=== PATIENT | male | born 1970 | race Caucasian/White ===

== ENCOUNTER 2018-10-01 09:50 | Emergency (ER) | payer MEDICAID ==
[~2018-10-01] VITALS: Ht 167.6 cm; Wt 68.0 kg
[~2018-10-01 09:50] MED LIST: FLUC200T PO; INSU100C SQ-INSULIN; INSU100V8 SQ; METO25TA35 PO
[2018-10-01 09:58] VITALS: BP 143/95
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
--- NOTE | 2018-10-01 10:20 | NUR ---
RECEIVED REPORT FROM RONNY SUN. PT SLEEPING ON GURNEY, NAD WITH EQUAL CHEST RISE/FALL, NAD, NO NEEDS AT THIS TIME, PT IN SAFE ENVIRONMENT, SITTER IN VIEW.
[2018-10-01 10:36] LABS: ALBUMIN 4.1 g/dL (3.4-5.0); ANION GAP 15 mmol/L (5-15); CALCIUM 9.1 mg/dL (8.5-10.1); CHLORIDE 99 mmol/L (98-107); CREATININE 1.49 mg/dL (0.7-1.3)
--- NOTE | 2018-10-01 11:00 | NUR ---
PT CONTINUES SLEEPING ON GURNEY, NAD WITH EQUAL CHEST RISE/FALL, NAD, NO NEEDS AT THIS TIME, PT IN SAFE ENVIRONMENT, SITTER IN VIEW.
[2018-10-01 11:11] LABS: ACETONE, SERUM Negative (Negative)
--- NOTE | 2018-10-01 11:19 | NUR ---
PT AWOKE & ATTEMTPTED TO AMBULATE OUT OF ROOM, VERY UNSTEADY, ASSISTED PT BACK TO [facility] & GIVEN BSU BUT PT WENT BACK TO SLEEP UPON LAYING DOWN & REFUSED BSU AT THIS TIME, BSU REAMINS WITHIN REACH.
--- NOTE | 2018-10-01 12:13 | NUR ---
PT CONTINUES SLEEPING ON GURNEY, OCCAS AWAKES & YELLS REQUIRING MOD AMT REDIRECTION, NAD WITH EQUAL CHEST RISE/FALL, NAD, NO NEEDS AT THIS TIME, PT IN SAFE ENVIRONMENT, SITTER IN VIEW.
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
--- NOTE | 2018-10-01 13:01 | NUR ---
PT LAYING ON GURNEY WITH EYES CLOSED, IGNORING STAFF & FREQUENTLY YELLING DESPITE REDIRECTION, NAD WITH EQUAL CHEST RISE/FALL, NAD, NO NEEDS AT THIS TIME, PT IN SAFE ENVIRONMENT, SITTER IN VIEW, RESTRAINTS & ASPIR PREC REMAIN IN PLACE.
--- NOTE | 2018-10-01 13:45 | NUR ---
PT AWAKE & STATES HE'S READY TO GO, RESTRAINTS REMOVED, LUNCH TRAY GIVEN, PT ATE 50%, AMBULATED STEADILY IN [place], PA AWARE. DC INSTRUCTIONS GIVEN, PT VERBALIZED UNDERSTAING BUT REFUSED TO SIGN.
== END 2018-10-01 13:58 | disposition home or self-care (01) ==
LOC: EDBD → MERGE 09:50 → ED 13:52
DX: F10.120 Alcohol abuse with intoxication, uncomplicated (principal); E11.9 Type 2 diabetes mellitus without complications; I10 Essential (primary) hypertension
CPT/HCPCS: 36415; 80048; 80307; 82010; 82040; 82800; 99283

== ENCOUNTER 2018-10-01 15:38 | Emergency (ER) | payer MEDICAID ==
[~2018-10-01] VITALS: Ht 175.3 cm; Wt 63.0 kg
--- NOTE | 2018-10-01 15:43 | NUR ---
CALLED PATIENT, NO ANSWER, PER SECURITY IN BR
[2018-10-01 15:45] VITALS: BP 164/82
[2018-10-01] MEDS ORDERED: FAMOTIDINE 20 MG TABLET PO ONE (16:00)
[2018-10-01] MEDS ORDERED: ONDANSETRON ODT 4 MG PO ONE (16:00)
[2018-10-01] MEDS ORDERED: MAALOX/HYOSCYAMINE/LIDOCAINE 45 ML BTL PO ONE (16:00)
[2018-10-01] MEDS ORDERED: MAALOX/HYOSCYAMINE/LIDOCAINE 45 ML BTL ONE (16:25)
[2018-10-01] MEDS ORDERED: FAMOTIDINE 20 MG TABLET ONE (16:25)
[2018-10-01] MEDS ORDERED: ONDANSETRON ODT 4 MG ONE (16:25)
--- NOTE | 2018-10-01 16:27 | NUR ---
WENT TO MED PT IN ROOM HE WAS NOT THERE
== END 2018-10-01 16:42 | disposition left against medical advice (07) ==
LOC: ED 16:36
DX: R10.9 Unspecified abdominal pain (principal); I10 Essential (primary) hypertension; E11.9 Type 2 diabetes mellitus without complications; F17.200 Nicotine dependence, unspecified, uncomplicated
CPT/HCPCS: 76700; 99284

== ENCOUNTER 2018-10-02 00:05 | Inpatient (IN) | payer MEDICAID ==
[~2018-10-02] VITALS: Ht 175.3 cm; Wt 68.4 kg
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
--- NOTE | 2018-10-02 00:25 | NUR ---
pt yelling, pt assessed and stated " can i have some vodka, can i have some dilaudid?", informed pt of poc
[2018-10-02] MEDS ORDERED: METOCLOPRAMIDE 5 MG/ML, 2ML ONE (00:28)
[2018-10-02] MEDS ORDERED: SODIUM CHLORIDE 0.9% 1,000ML IVBOLUS ONE ×2 (00:30→01:30)
[2018-10-02] MEDS ORDERED: METOCLOPRAMIDE 5 MG/ML, 2ML IVPush ONE (00:30)
[2018-10-02 01:17] LABS: ALANINE AMINOTRANSFERASE 26 U/L (12-78); ALBUMIN 4.2 g/dL (3.4-5.0); ANION GAP 21 mmol/L (5-15); CALCIUM 8.7 mg/dL (8.5-10.1); CHLORIDE 99 mmol/L (98-107); CREATININE 1.35 mg/dL (0.7-1.3)
[2018-10-02 01:19] LABS: ALKALINE PHOSPHATASE 172 U/L (45-117); BILIRUBIN,TOTAL 1.2 mg/dL (0.2-1.0); TOTAL PROTEIN 8.7 g/dL (6.4-8.2)
--- NOTE | 2018-10-02 01:21 | NUR ---
PT REFUSING LAB DRAW, ERP UPDATED AND WILL SEE PT
[2018-10-02] MEDS ORDERED: INSULIN REGULAR 100 UNITS/ML, 3ML VIAL IVPush ONE (01:30)
[2018-10-02] MEDS ORDERED: INSULIN LISPRO 100 UNITS/ML, PEN ONE (01:34)
--- NOTE | 2018-10-02 01:52 | NUR ---
pt sitting up in bed, pt removed all monitoring wires, replaced monitors and pt verbalized understanding and agreement of need for monitoring. iv fluids infusing, call light within reach
--- NOTE | 2018-10-02 02:00 | NUR ---
Break RN:Pt amb w/ steady gait to RR for bm.
--- NOTE | 2018-10-02 02:02 | NUR ---
Break RN: Pt continues to rip monitoring off and refusing to wear.
[2018-10-02 02:15] LABS: ACETONE, SERUM Negative (Negative)
--- NOTE | 2018-10-02 02:42 | NUR ---
pt resting on gurney, iv fluid sinfusing, pt refuses to wear monitors, call light within reach
[2018-10-02] MEDS ORDERED: LORazepam 2 MG/ML, 1ML ONE ×8 (03:39→06:19)
[2018-10-02] MEDS ORDERED: LORazepam 2 MG/ML, 1ML IVPush ONE ×5 (04:00→07:30)
[2018-10-02] MEDS ORDERED: MAGNESIUM SULFATE 1 GM, THIAMINE 100 MG, FOLIC ACID 1 MG, MVI ADULT 10 ML in SODIUM CHL... IV ONE (04:00)
[2018-10-02] MEDS ORDERED: LORazepam 2 MG/ML, 1ML IM ONE ×6 (04:30→06:00)
--- NOTE | 2018-10-02 04:36 | NUR ---
Multiple rn's have attempted iv's, including US iv's. No success.
[2018-10-02 04:47] LABS: MEAN CORPUSCULAR HEMOGLOBIN 24.9 pg (27.5-34.5); MEAN CORPUSCULAR HGB CONC 32.7 g/dL (33.2-36.2); MEAN CORPUSCULAR VOLUME 76.1 fL (81-97); MEAN PLATELET VOLUME 8.8 fL (7.4-10.4); PLATELET COUNT 309 x10^3/uL (130-400); RED BLOOD COUNT 4.16 x10^6/uL (4.38-5.82); RED CELL DISTRIBUTION WIDTH 22.1 % (9.4-14.8)
--- NOTE | 2018-10-02 04:52 | NUR ---
erp at pt's bedside for iv site
[2018-10-02 04:53] LABS: BASOPHILS # (AUTO) 0.02 x10^3/uL (0-0.1); BASOPHILS % (AUTO) 0 % (0-1); EOSINOPHILS # (AUTO) 0.01 x10^3/uL (0-0.4); EOSINOPHILS % (AUTO) 0 % (1-7); LYMPHOCYTES % (AUTO) 19 % (22-44); MD SCAN; MONOCYTES # (AUTO) 0.55 x10^3/uL (0.2-0.8); MONOCYTES % (AUTO) 7 % (2-9); NEUTROPHILS # (AUTO) 5.67 x10^3/uL (1.8-6.8); NEUTROPHILS % (AUTO) 73 % (42-75)
[2018-10-02] MEDS ORDERED: KETAMINE 10 MG/ML, 20ML ONE ×2 (05:43→06:01)
[2018-10-02] MEDS ORDERED: KETAMINE 100 MG/ML, 5ML IM ONE (06:00)
[2018-10-02] MEDS: PROPOFOL 100 ML IV PRN ×4 (06:15→21:55)
[2018-10-02] MEDS: MIDAZOLAM HCL 25 MG in SODIUM CHLORIDE 0.9% 245 ML IV PRN ×2 (06:15→13:46)
[2018-10-02] MEDS ORDERED: ETOMIDATE 20 MG/10 ML IV ONE (06:30)
[2018-10-02] MEDS ORDERED: SUCCINYLCHOLINE 20 MG/ML, 10ML IVPush ONE (06:30)
[2018-10-02] MEDS ORDERED: KETAMINE 100 MG/ML, 5ML IV ONE ×3 (06:30)
[2018-10-02] MEDS ORDERED: SODIUM CHLORIDE 0.9% IV ONE (06:30)
[2018-10-02] MEDS ORDERED: PHENOBARBITAL SODIUM IV ONE (06:30)
--- NOTE | 2018-10-02 06:30 | NUR ---
pt brought to trauma 4 for central line placement, pt un cooperative and unable to calm down with im meds, io placed and meds continually given but pt not cooperative, pt had to be sedated and intubated then central line was placed by dr huitron
--- NOTE | 2018-10-02 07:00 | NUR ---
report received from Jeny, care assumed at this time.
[2018-10-02] MEDS ORDERED: PROPOFOL 100 ML IV ONE (07:02)
[2018-10-02] MEDS ORDERED: MIDAZOLAM 1 MG/ML, 2ML ONE (07:27)
--- NOTE | 2018-10-02 07:31 | NUR ---
Dr. Wright at bedside to evaluate patient, patient occasionally opens eyes, does not follow commands. Per Dr. Wright give versed bolus 2mg IV push x1 now, verbal order read back and verified. OK to use central line per Dr. Wright with bedside CXR. Versed administered as ordered.
--- NOTE | 2018-10-02 07:34 | NUR ---
Versed currently infusing 3mg/hr, propfol 50mcg/kg/minute.
--- NOTE | 2018-10-02 07:49 | NUR ---
IO discontinued, occlusive dressing placed.
--- NOTE | 2018-10-02 07:51 | NUR ---
Lab at bedside, patient resting in gurney with eyes closed, appears to be relaxed
[2018-10-02] MEDS ORDERED: THIAMINE 200 MG in SODIUM CHLORIDE 0.9% 50 ML IV ONE ×2 (08:00→10:00)
[2018-10-02] MEDS ORDERED: DEXTROSE 4 GM TAB.CHEW PO PRN ×2 (08:00→09:30)
[2018-10-02] MEDS ORDERED: GLUCAGON 1 MG IM PRN ×2 (08:00→09:30)
[2018-10-02] MEDS ORDERED: DEXTROSE 50%, 50ML SYRINGE IVPush PRN ×2 (08:00→09:30)
[2018-10-02] MEDS ORDERED: MAGNESIUM SULFATE PMX 2GM/50ML 50 ML IV ONE (08:00)
--- NOTE | 2018-10-02 08:23 | NUR ---
Report called to Dipti, patient transported with RNx2 and RT.
[2018-10-02 08:34] LABS: ANION GAP 11 mmol/L (5-15); CALCIUM 7.8 mg/dL (8.5-10.1); CHLORIDE 106 mmol/L (98-107); CREATININE 1.01 mg/dL (0.7-1.3)
[2018-10-02 08:37] LABS: CREATINE KINASE, TOTAL 860 U/L (39-308)
[2018-10-02] MEDS ORDERED: MIDAZOLAM HCL 25 MG in SODIUM CHLORIDE 0.9% 245 ML IV PRN (09:22)
[2018-10-02] MEDS ORDERED: LIDOCAINE-MPF 1%, 2ML ENDO PRN (09:30)
[2018-10-02] MEDS ORDERED: SENNA 176 MG/5 ML ORAL SOL NG PRN (09:30)
[2018-10-02] MEDS: SODIUM CHLORIDE 0.9% 1,000 ML IV SCH ×4 (09:30→17:38)
[2018-10-02] MEDS ORDERED: SENNA/DOCUSATE TABLET NG PRN (09:30)
[2018-10-02] MEDS ORDERED: BISACODYL 10 MG SUPP PR PRN (09:30)
[2018-10-02] MEDS ORDERED: MIDAZOLAM 1 MG/ML, 2ML IVPush PRN (09:30)
[2018-10-02] MEDS ORDERED: LACTULOSE 20 GM/30 ML UDC NG PRN (09:30)
[2018-10-02] MEDS ORDERED: PHARMACY MAY ADJ FOR RENAL FX MC SCH (09:30)
[2018-10-02] MEDS: FOLIC ACID 1 MG, THIAMINE 200 MG, MVI ADULT 10 ML in DEXTROSE 5% 1,000 ML IV SCH (09:31)
[2018-10-02] MEDS: ENOXAPARIN 40 MG/0.4 ML SQ SCH (09:33)
[2018-10-02] MEDS: SODIUM CHLORIDE FLUSH 10ML SYR IVF SCH ×3 (09:34→21:50)
[2018-10-02] MEDS ORDERED: THIAMINE 100MG TABLET PO ONE (10:00)
[2018-10-02 10:11] LABS: MICROSCOPIC AUTO
[2018-10-02 10:13] LABS: CULTURE INDICATED? NO
[2018-10-02 10:24] LABS: TROPONIN I < 0.015 ng/mL (0.000-0.045)
[2018-10-02] MEDS ORDERED: MIDAZOLAM 1 MG/ML, 5ML ONE (10:26)
[2018-10-02] MEDS ORDERED: PROPOFOL 10 MG/ML, 100ML IV ONE (10:26)
[2018-10-02] MEDS ORDERED: ETOMIDATE 20 MG/10 ML ONE (10:26)
[2018-10-02] MEDS ORDERED: SUCCINYLCHOLINE 20 MG/ML, 10ML ONE (10:26)
[2018-10-02] MEDS: AMPICILLIN/SULBACTAM 3 GM in SODIUM CHLORIDE 0.9% 100 ML IV SCH ×3 (10:36→21:49)
[2018-10-02 10:54] LABS: AMPHETAMINE SCREEN, URINE Negative (Negative); BARBITURATE SCREEN, URINE Negative (Negative); BENZODIAZEPINE SCREEN, URINE Positive (Negative); CANNABINOID SCREEN, URINE Negative (Negative); COCAINE SCREEN, URINE Negative (Negative); METHADONE SCREEN, URINE Negative (Negative); OPIATE SCREEN, URINE Negative (Negative)
[2018-10-02] MEDS: INSULIN LISPRO 100 UNITS/ML, PEN SQ-INSULIN SCH ×6 (11:00→21:48)
[2018-10-02] MEDS: FAMOTIDINE 20 MG/2 ML IV SCH ×2 (11:49→21:50)
[2018-10-02] MEDS: ALBUTEROL/IPRATROPIUM 2.5MG/0.5MG, 3 ML INLINE SCH ×4 (13:30→21:30)
[2018-10-02 14:46] LABS: TROPONIN I < 0.015 ng/mL (0.000-0.045)
[2018-10-02 17:24] LABS: OCCULT BLOOD POSITIVE (NEGATIVE)
[2018-10-02 17:46] LABS: CLOSTRIDIUM DIFFICILE ANTIGEN POSITIVE; CLOSTRIDIUM DIFFICILE TOXIN NEGATIVE (Negative)
[2018-10-02] MEDS: VANCOMYCIN 50 MG/ML ORAL SUSP NG SCH (19:50)
[2018-10-02] MEDS: BUDESONIDE 0.5 MG/2 ML INHA INH SCH (21:00)
[2018-10-02] MEDS: MIDAZOLAM HCL 50 MG in SODIUM CHLORIDE 0.9% 240 ML IV PRN (21:49)
[2018-10-02] MEDS: FENTANYL PF 100 MCG/2ML IVPush PRN (22:48)
[2018-10-03] MEDS: FENTANYL PF 100 MCG/2ML IVPush PRN ×3 (00:54→23:36)
[2018-10-03] MEDS: ALBUTEROL/IPRATROPIUM 2.5MG/0.5MG, 3 ML INLINE SCH ×6 (01:30→23:00)
[2018-10-03] MEDS: PROPOFOL 100 ML IV PRN ×5 (02:21→21:11)
[2018-10-03 04:00] VITALS: BP 160/96
[2018-10-03] MEDS: AMPICILLIN/SULBACTAM 3 GM in SODIUM CHLORIDE 0.9% 100 ML IV SCH ×4 (04:11→21:11)
[2018-10-03] MEDS: SODIUM CHLORIDE 0.9% 1,000 ML IV SCH ×2 (04:18→05:30)
[2018-10-03] MEDS: VANCOMYCIN 50 MG/ML ORAL SUSP NG SCH ×4 (04:18→21:12)
[2018-10-03 05:00] LABS: ALBUMIN 2.9 g/dL (3.4-5.0); ANION GAP 6 mmol/L (5-15); CALCIUM 7.7 mg/dL (8.5-10.1); CHLORIDE 108 mmol/L (98-107)
[2018-10-03] MEDS: INSULIN LISPRO 100 UNITS/ML, PEN SQ-INSULIN SCH ×4 (05:00→23:37)
[2018-10-03 05:09] LABS: % IRON SATURATION 22 % (20-55); ALANINE AMINOTRANSFERASE 19 U/L (12-78); ALKALINE PHOSPHATASE 123 U/L (45-117); BILIRUBIN,TOTAL 1.1 mg/dL (0.2-1.0); CREATININE 0.71 mg/dL (0.7-1.3); IRON LEVEL 48 mcg/dL (65-175); THYROID STIMULATING HORMONE 0.518 mIU/L (0.358-3.740); TOTAL IRON BINDING CAPACITY 219 mcg/dL (250-450); TOTAL PROTEIN 6.1 g/dL (6.4-8.2)
[2018-10-03 06:34] LABS: BASOPHILS # (AUTO) 0.05 x10^3/uL (0-0.1); BASOPHILS % (AUTO) 2 % (0-1); EOSINOPHILS # (AUTO) 0.05 x10^3/uL (0-0.4); EOSINOPHILS % (AUTO) 2 % (1-7); LYMPHOCYTES # (AUTO) 0.87 x10^3/uL (1-3.4); LYMPHOCYTES % (AUTO) 25 % (22-44); MD SCAN; MEAN CORPUSCULAR HEMOGLOBIN 25.5 pg (27.5-34.5); MEAN CORPUSCULAR HGB CONC 33.3 g/dL (33.2-36.2); MEAN CORPUSCULAR VOLUME 76.6 fL (81-97); MEAN PLATELET VOLUME 8.4 fL (7.4-10.4); MONOCYTES # (AUTO) 0.21 x10^3/uL (0.2-0.8); MONOCYTES % (AUTO) 6 % (2-9); NEUTROPHILS # (AUTO) 2.37 x10^3/uL (1.8-6.8); NEUTROPHILS % (AUTO) 67 % (42-75); PLATELET COUNT 146 x10^3/uL (130-400); RED BLOOD COUNT 3.52 x10^6/uL (4.38-5.82); RED CELL DISTRIBUTION WIDTH 22.6 % (9.4-14.8)
[2018-10-03] MEDS: FOLIC ACID 1 MG, THIAMINE 200 MG, MVI ADULT 10 ML in DEXTROSE 5% 1,000 ML IV SCH (08:00)
[2018-10-03] MEDS ORDERED: hydrALAzine 20 MG/ML, 1ML IV PRN ×2 (09:00→13:00)
[2018-10-03] MEDS: SODIUM CHLORIDE FLUSH 10ML SYR IVF SCH ×3 (09:00→21:00)
[2018-10-03] MEDS ORDERED: POTASSIUM CHLORIDE 10% ORAL 20 MEQ/15 ML ORAL.SOL PO SCH (09:00)
[2018-10-03] MEDS: BUDESONIDE 0.5 MG/2 ML INHA INH SCH (09:00)
[2018-10-03] MEDS: THIAMINE 100 MG in DEXTROSE 5% 50 ML IV SCH (09:45)
[2018-10-03] MEDS: ENOXAPARIN 40 MG/0.4 ML SQ SCH (09:47)
[2018-10-03] MEDS: MULTIVIT.W/IRON, MINERALS ORAL SOL PO SCH (09:47)
[2018-10-03] MEDS: FAMOTIDINE 20 MG/2 ML IV SCH ×2 (09:47→21:11)
[2018-10-03] MEDS: DIAZEPAM 5 MG/ML, 2ML IVPush SCH ×3 (10:22→17:00)
--- NOTE | 2018-10-03 10:25 | NUR ---
TF Goal: Promote @ 70 ml/hour on propofol and 80 ml/hour off propofol
[2018-10-03] MEDS ORDERED: hydrALAzine 20 MG/ML, 1ML ONE (10:42)
[2018-10-03] MEDS: MIDAZOLAM HCL 50 MG in SODIUM CHLORIDE 0.9% 240 ML IV PRN (16:05)
[2018-10-03] MEDS: hydrALAzine 20 MG/ML, 1ML IV PRN ×2 (17:13→21:21)
[2018-10-03] MEDS: DIAZEPAM 5 MG/ML, 10ML VIAL IVPush SCH ×2 (18:05→21:11)
[2018-10-03] MEDS ORDERED: POTASSIUM CHLORIDE 10% 40 MEQ/30 ML UDC PO SCH (21:00)
[2018-10-04] MEDS: PROPOFOL 100 ML IV PRN ×6 (00:15→21:19)
[2018-10-04] MEDS: ALBUTEROL/IPRATROPIUM 2.5MG/0.5MG, 3 ML INLINE SCH ×6 (02:46→23:16)
[2018-10-04] MEDS: hydrALAzine 20 MG/ML, 1ML IV PRN (03:23)
[2018-10-04 04:00] VITALS: BP 135/64
[2018-10-04 05:00] LABS: ANION GAP 8 mmol/L (5-15); CALCIUM 8.1 mg/dL (8.5-10.1); CHLORIDE 108 mmol/L (98-107); CREATININE 0.83 mg/dL (0.7-1.3)
[2018-10-04] MEDS: AMPICILLIN/SULBACTAM 3 GM in SODIUM CHLORIDE 0.9% 100 ML IV SCH ×4 (05:35→21:29)
[2018-10-04] MEDS: VANCOMYCIN 50 MG/ML ORAL SUSP NG SCH (05:35)
[2018-10-04] MEDS: INSULIN LISPRO 100 UNITS/ML, PEN SQ-INSULIN SCH ×4 (05:36→22:33)
[2018-10-04 07:09] LABS: MEAN CORPUSCULAR HEMOGLOBIN 25.2 pg (27.5-34.5); MEAN CORPUSCULAR HGB CONC 32.6 g/dL (33.2-36.2); MEAN CORPUSCULAR VOLUME 77.4 fL (81-97); MEAN PLATELET VOLUME 8.5 fL (7.4-10.4); PLATELET COUNT 149 x10^3/uL (130-400); RED BLOOD COUNT 3.73 x10^6/uL (4.38-5.82); RED CELL DISTRIBUTION WIDTH 23.3 % (9.4-14.8)
[2018-10-04 07:15] LABS: BASOPHILS # (AUTO) 0.05 x10^3/uL (0-0.1); BASOPHILS % (AUTO) 1 % (0-1); EOSINOPHILS # (AUTO) 0.16 x10^3/uL (0-0.4); EOSINOPHILS % (AUTO) 2 % (1-7); LYMPHOCYTES # (AUTO) 1.22 x10^3/uL (1-3.4); LYMPHOCYTES % (AUTO) 18 % (22-44); MD SCAN; MONOCYTES # (AUTO) 0.28 x10^3/uL (0.2-0.8); MONOCYTES % (AUTO) 4 % (2-9); NEUTROPHILS % (AUTO) 75 % (42-75)
[2018-10-04] MEDS: SODIUM CHLORIDE FLUSH 10ML SYR IVF SCH ×2 (09:01→21:26)
[2018-10-04] MEDS: THIAMINE 100 MG in DEXTROSE 5% 50 ML IV SCH (09:01)
[2018-10-04] MEDS: ENOXAPARIN 40 MG/0.4 ML SQ SCH (09:01)
[2018-10-04] MEDS: FAMOTIDINE 20 MG/2 ML IV SCH ×2 (09:09→21:26)
[2018-10-04] MEDS: MULTIVIT.W/IRON, MINERALS ORAL SOL PO SCH (09:09)
[2018-10-04] MEDS: FUROSEMIDE 20 MG/2 ML IV SCH ×2 (09:56→21:26)
[2018-10-04] MEDS: NICOTINE 21 MG/24 HR PATCH.TD24 TD SCH (09:56)
[2018-10-04] MEDS: DIAZEPAM 5 MG/ML, 10ML VIAL IVPush SCH ×4 (10:05→21:30)
[2018-10-04] MEDS ORDERED: POTASSIUM CHLORIDE 40 MEQ in SODIUM CHLORIDE 0.9% 100 ML IV ONE (11:00)
[2018-10-04] MEDS ORDERED: INSULIN REGULAR, HUMAN 100 UNITS/ML, 3ML MEDIUM DOSE SS SQ-INSULIN SCH (11:00)
[2018-10-04] MEDS: FENTANYL PF 100 MCG/2ML IVPush PRN (23:10)
[2018-10-05] MEDS: PROPOFOL 100 ML IV PRN (00:23)
[2018-10-05] MEDS: DIAZEPAM 5 MG/ML, 10ML VIAL IVPush SCH ×2 (01:45→05:26)
[2018-10-05] MEDS: ALBUTEROL/IPRATROPIUM 2.5MG/0.5MG, 3 ML INLINE SCH ×3 (02:47→10:25)
[2018-10-05] MEDS: FENTANYL PF 100 MCG/2ML IVPush PRN (03:07)
[2018-10-05] MEDS: hydrALAzine 20 MG/ML, 1ML IV PRN (03:08)
[2018-10-05 04:30] VITALS: BP 156/81
[2018-10-05] MEDS: AMPICILLIN/SULBACTAM 3 GM in SODIUM CHLORIDE 0.9% 100 ML IV SCH ×2 (04:35→10:18)
[2018-10-05 04:53] LABS: MEAN CORPUSCULAR HEMOGLOBIN 25.5 pg (27.5-34.5); MEAN CORPUSCULAR HGB CONC 32.9 g/dL (33.2-36.2); MEAN CORPUSCULAR VOLUME 77.6 fL (81-97); RED BLOOD COUNT 3.96 x10^6/uL (4.38-5.82); RED CELL DISTRIBUTION WIDTH 23.6 % (9.4-14.8)
[2018-10-05 04:54] LABS: BASOPHILS # (AUTO) 0.04 x10^3/uL (0-0.1); BASOPHILS % (AUTO) 1 % (0-1); EOSINOPHILS # (AUTO) 0.26 x10^3/uL (0-0.4); EOSINOPHILS % (AUTO) 4 % (1-7); LYMPHOCYTES # (AUTO) 1.26 x10^3/uL (1-3.4); LYMPHOCYTES % (AUTO) 18 % (22-44); MD SCAN; MEAN PLATELET VOLUME 8.6 fL (7.4-10.4); MONOCYTES # (AUTO) 0.41 x10^3/uL (0.2-0.8); MONOCYTES % (AUTO) 6 % (2-9); NEUTROPHILS % (AUTO) 71 % (42-75); PLATELET COUNT 160 x10^3/uL (130-400)
[2018-10-05] MEDS ORDERED: DEXMEDETOMIDINE 1,000 MCG in SODIUM CHLORIDE 0.9% 240 ML IV PRN (05:00)
[2018-10-05] MEDS: INSULIN LISPRO 100 UNITS/ML, PEN SQ-INSULIN SCH ×4 (05:26→23:56)
[2018-10-05 06:37] LABS: ANION GAP 6 mmol/L (5-15); CALCIUM 8.7 mg/dL (8.5-10.1); CHLORIDE 103 mmol/L (98-107)
[2018-10-05 06:38] LABS: CREATININE 0.78 mg/dL (0.7-1.3)
[2018-10-05] MEDS ORDERED: LABETALOL 5MG/ML, 20ML IV PRN (09:00)
[2018-10-05] MEDS: FUROSEMIDE 20 MG/2 ML IV SCH (09:36)
[2018-10-05] MEDS: THIAMINE 100 MG in DEXTROSE 5% 50 ML IV SCH (09:36)
[2018-10-05] MEDS: FAMOTIDINE 20 MG/2 ML IV SCH ×2 (09:36→22:09)
[2018-10-05] MEDS: ENOXAPARIN 40 MG/0.4 ML SQ SCH (09:36)
[2018-10-05] MEDS: NICOTINE 21 MG/24 HR PATCH.TD24 TD SCH (09:37)
[2018-10-05] MEDS: MULTIVIT.W/IRON, MINERALS ORAL SOL PO SCH (09:37)
[2018-10-05] MEDS: SODIUM CHLORIDE FLUSH 10ML SYR IVF SCH ×2 (09:37→22:10)
[2018-10-05] MEDS ORDERED: DIAZEPAM 5 MG TABLET PO PRN (10:00)
[2018-10-05] MEDS: POTASSIUM CHLORIDE 20 MEQ PACKET NG SCH (10:19)
[2018-10-05] MEDS ORDERED: LORazepam 1MG TABLET ONE (14:44)
[2018-10-05] MEDS ORDERED: LORazepam 1MG TABLET PO PRN (15:00)
[2018-10-05] MEDS: DIAZEPAM 5 MG/ML, 2ML IV PRN (18:00)
[2018-10-05] MEDS ORDERED: HYDROmorphone 1 MG/ML, 1ML INJ IVPush PRN (18:00)
[2018-10-05] MEDS: HALOPERIDOL 5 MG/ML IV PRN (18:57)
[2018-10-05] MEDS ORDERED: HYDROmorphone 2 MG/ML, 1ML IVPush PRN (22:00)
[2018-10-06] MEDS: DIAZEPAM 5 MG/ML, 2ML IV PRN ×2 (02:46→07:25)
[2018-10-06] MEDS: HALOPERIDOL 5 MG/ML IV PRN (02:47)
[2018-10-06] MEDS: INSULIN LISPRO 100 UNITS/ML, PEN SQ-INSULIN SCH ×3 (04:27→20:29)
[2018-10-06 04:47] LABS: ANION GAP 9 mmol/L (5-15); CALCIUM 8.6 mg/dL (8.5-10.1); CHLORIDE 102 mmol/L (98-107); CREATININE 0.88 mg/dL (0.7-1.3)
[2018-10-06 06:14] LABS: MEAN CORPUSCULAR HEMOGLOBIN 25.5 pg (27.5-34.5); MEAN CORPUSCULAR HGB CONC 32.8 g/dL (33.2-36.2); MEAN CORPUSCULAR VOLUME 77.9 fL (81-97); RED BLOOD COUNT 3.85 x10^6/uL (4.38-5.82); RED CELL DISTRIBUTION WIDTH 24.1 % (9.4-14.8)
[2018-10-06 06:15] LABS: MEAN PLATELET VOLUME 8.7 fL (7.4-10.4); PLATELET COUNT 152 x10^3/uL (130-400)
[2018-10-06 06:18] LABS: MD SCAN
[2018-10-06 06:20] LABS: BASOPHILS # (AUTO) 0.02 x10^3/uL (0-0.1); BASOPHILS % (AUTO) 1 % (0-1); EOSINOPHILS # (AUTO) 0.33 x10^3/uL (0-0.4); EOSINOPHILS % (AUTO) 6 % (1-7); LYMPHOCYTES # (AUTO) 1.62 x10^3/uL (1-3.4); LYMPHOCYTES % (AUTO) 31 % (22-44); MONOCYTES # (AUTO) 0.38 x10^3/uL (0.2-0.8); MONOCYTES % (AUTO) 7 % (2-9); NEUTROPHILS # (AUTO) 2.95 x10^3/uL (1.8-6.8); NEUTROPHILS % (AUTO) 56 % (42-75)
[2018-10-06] MEDS ORDERED: INSULIN LISPRO 100 UNITS/ML, PEN SQ-INSULIN SCH ×2 (07:00→16:00)
[2018-10-06] MEDS ORDERED: FUROSEMIDE 20 MG/2 ML IV SCH (09:00)
[2018-10-06] MEDS ORDERED: LORazepam 1MG TABLET ONE (09:42)
[2018-10-06] MEDS: SODIUM CHLORIDE FLUSH 10ML SYR IVF SCH ×2 (10:00→20:31)
[2018-10-06] MEDS ORDERED: LORazepam 1MG TABLET PO PRN ×3 (10:00)
[2018-10-06] MEDS: POTASSIUM CHLORIDE 20 MEQ PACKET NG SCH (10:09)
[2018-10-06] MEDS: ENOXAPARIN 40 MG/0.4 ML SQ SCH (10:09)
[2018-10-06] MEDS: NICOTINE 21 MG/24 HR PATCH.TD24 TD SCH (10:12)
[2018-10-06] MEDS: FAMOTIDINE 20 MG/2 ML IV SCH (10:14)
[2018-10-06] MEDS: THIAMINE 100 MG in DEXTROSE 5% 50 ML IV SCH (10:19)
[2018-10-06] MEDS: CHLORDIAZEPOXIDE 25 MG CAPSULE PO SCH ×3 (10:43→20:28)
[2018-10-06] MEDS: MULTIVIT.W/IRON, MINERALS ORAL SOL PO SCH (10:44)
[2018-10-06] MEDS ORDERED: MAGNESIUM OXIDE 400 MG TABLET PO ONE (11:30)
[2018-10-06] MEDS ORDERED: hydrALAzine 20 MG/ML, 1ML IV PRN (13:00)
[2018-10-06 13:12] VITALS: BP 152/97
[2018-10-06] MEDS: LORazepam 0.5MG TABLET PO PRN (13:44)
[2018-10-06] MEDS ORDERED: OXYcodone 5 MG/5 ML ORAL.SOL UDC PO PRN (14:30)
[2018-10-06] MEDS: LORazepam 1MG TABLET PO PRN (17:16)
[2018-10-06 18:44] VITALS: BP 155/81
[2018-10-06] MEDS: INSULIN GLARGINE 100 UNITS/ML, PEN SQ-INSULIN SCH (20:29)
[2018-10-06 23:55] VITALS: BP 154/83
[2018-10-07 01:07] LABS: TROPONIN I < 0.015 ng/mL (0.000-0.045)
[2018-10-07 01:45] VITALS: BP 161/99
[2018-10-07] MEDS: LORazepam 0.5MG TABLET PO PRN ×2 (02:08→16:51)
[2018-10-07] MEDS: CHLORDIAZEPOXIDE 25 MG CAPSULE PO SCH (05:12)
[2018-10-07 05:53] LABS: ALBUMIN 3.3 g/dL (3.4-5.0); ANION GAP 7 mmol/L (5-15); CALCIUM 8.9 mg/dL (8.5-10.1); CHLORIDE 99 mmol/L (98-107)
[2018-10-07 05:56] LABS: ALANINE AMINOTRANSFERASE 20 U/L (12-78); ALKALINE PHOSPHATASE 125 U/L (45-117); BILIRUBIN,TOTAL 0.7 mg/dL (0.2-1.0); TOTAL PROTEIN 7.2 g/dL (6.4-8.2)
[2018-10-07 06:01] LABS: TROPONIN I < 0.015 ng/mL (0.000-0.045)
[2018-10-07 06:53] VITALS: BP 159/86
[2018-10-07 08:14] LABS: MD YES; MEAN CORPUSCULAR HEMOGLOBIN 25.5 pg (27.5-34.5); MEAN CORPUSCULAR HGB CONC 32.5 g/dL (33.2-36.2); MEAN CORPUSCULAR VOLUME 78.4 fL (81-97); MEAN PLATELET VOLUME 9.2 fL (7.4-10.4); PLATELET COUNT 155 x10^3/uL (130-400); RED BLOOD COUNT 4.32 x10^6/uL (4.38-5.82); RED CELL DISTRIBUTION WIDTH 24.5 % (9.4-14.8)
[2018-10-07 08:16] LABS: EOS#(MANUAL) 0.33 x10^3/uL (0.0-0.4); EOS% (MANUAL) 7 % (1-7); LYMPH#(MANUAL) 1.46 x10^3/uL (1-3.4); LYMPHS% (MANUAL) 31 % (22-44); MONOS#(MANUAL) 0.19 x10^3/uL (0.3-2.7); MONOS% (MANUAL) 4 % (2-9); SEG#(MANUAL) 2.73 x10^3/uL (1.8-6.8); SEGS% (MANUAL) 58 % (42-75)
[2018-10-07 08:17] LABS: <PLATELET ESTIMATE> ADEQUATE; MICROCYTOSIS 1+; OVALOCYTES 1+
[2018-10-07 08:18] LABS: LARGE PLATELETS 1+
[2018-10-07] MEDS: INSULIN GLARGINE 100 UNITS/ML, PEN SQ-INSULIN SCH ×2 (08:31→20:27)
[2018-10-07] MEDS: ENOXAPARIN 40 MG/0.4 ML SQ SCH (08:31)
[2018-10-07] MEDS: INSULIN LISPRO 100 UNITS/ML, PEN SQ-INSULIN SCH ×4 (08:31→20:27)
[2018-10-07] MEDS: MAGNESIUM OXIDE 400 MG TABLET PO SCH (08:32)
[2018-10-07] MEDS: FOLIC ACID 1 MG TABLET PO SCH (08:32)
[2018-10-07] MEDS: NICOTINE 21 MG/24 HR PATCH.TD24 TD SCH (08:32)
[2018-10-07] MEDS: SODIUM CHLORIDE FLUSH 10ML SYR IVF SCH ×2 (08:32→20:26)
[2018-10-07] MEDS: MULTIVITAMIN 1 TABLET PO SCH (08:32)
[2018-10-07] MEDS: THIAMINE 100 MG in DEXTROSE 5% 50 ML IV SCH (09:00)
[2018-10-07 12:37] VITALS: BP 156/69
[2018-10-07] MEDS: GABAPENTIN 100 MG CAPSULE PO SCH ×2 (16:51→20:26)
[2018-10-07 18:24] VITALS: BP 155/94
[2018-10-07] MEDS ORDERED: QUETIAPINE 25MG TABLET PO SCH ×2 (21:00)
[2018-10-07] MEDS: LORazepam 1MG TABLET PO PRN (21:56)
[2018-10-08 01:12] VITALS: BP 159/98
[2018-10-08] MEDS: LORazepam 1MG TABLET PO PRN (01:16)
[2018-10-08] MEDS: LORazepam 0.5MG TABLET PO PRN (06:45)
[2018-10-08 07:45] VITALS: BP 159/105
[2018-10-08] MEDS: ENOXAPARIN 40 MG/0.4 ML SQ SCH (08:00)
[2018-10-08] MEDS: FOLIC ACID 1 MG TABLET PO SCH (08:24)
[2018-10-08] MEDS: MULTIVITAMIN 1 TABLET PO SCH (08:24)
[2018-10-08] MEDS: GABAPENTIN 100 MG CAPSULE PO SCH (08:24)
[2018-10-08] MEDS: MAGNESIUM OXIDE 400 MG TABLET PO SCH (08:24)
[2018-10-08] MEDS: NICOTINE 21 MG/24 HR PATCH.TD24 TD SCH (08:24)
[2018-10-08] MEDS: INSULIN LISPRO 100 UNITS/ML, PEN SQ-INSULIN SCH ×2 (08:25→11:00)
[2018-10-08] MEDS: INSULIN GLARGINE 100 UNITS/ML, PEN SQ-INSULIN SCH (08:26)
[2018-10-08] MEDS ORDERED: THIAMINE 100MG TABLET PO SCH (09:00)
[2018-10-08] MEDS: SODIUM CHLORIDE FLUSH 10ML SYR IVF SCH (09:00)
[2018-10-08 12:29] VITALS: BP 134/80
== END 2018-10-08 13:08 | disposition left against medical advice (07) | DRG 208 ==
LOC: ED 00:41 → EDIP 07:09 → CCU 08:28 → 4WST 10-06 12:51
PROVIDERS: ADMIT Internal Medicine; ATTEND Internal Medicine
PROC: 5A1945Z Respiratory Ventilation, 24-96 Consecutive Hours (ICD-10-PCS; principal; 2018-10-02)
PROC: 0BH17EZ Insertion of Endotracheal Airway into Trachea, Via Natural or Artificial Opening (ICD-10-PCS; 2018-10-02)
PROC: 0T9B70Z Drainage of Bladder with Drainage Device, Via Natural or Artificial Opening (ICD-10-PCS; 2018-10-02)
PROC: 02HV33Z Insertion of Infusion Device into Superior Vena Cava, Percutaneous Approach (ICD-10-PCS; 2018-10-02)
PROC: B548ZZA Ultrasonography of Superior Vena Cava, Guidance (ICD-10-PCS; 2018-10-02)
DX: J96.01 Acute respiratory failure with hypoxia (principal); G93.41 Metabolic encephalopathy; B37.6 Candidal endocarditis; F10.231 Alcohol dependence with withdrawal delirium; N17.9 Acute kidney failure, unspecified; I85.00 Esophageal varices without bleeding; K22.10 Ulcer of esophagus without bleeding; K76.6 Portal hypertension; M00.9 Pyogenic arthritis, unspecified; Z99.11 Dependence on respirator [ventilator] status; Z88.6 Allergy status to analgesic agent; Z88.8 Allergy status to other drugs, medicaments and biological substances; B95.61 Methicillin susceptible Staphylococcus aureus infection as the cause of diseases classified elsewhere; D53.9 Nutritional anemia, unspecified; E10.65 Type 1 diabetes mellitus with hyperglycemia; E10.69 Type 1 diabetes mellitus with other specified complication; E83.42 Hypomagnesemia; F17.200 Nicotine dependence, unspecified, uncomplicated; F19.10 Other psychoactive substance abuse, uncomplicated; F41.9 Anxiety disorder, unspecified; G89.29 Other chronic pain; I07.9 Rheumatic tricuspid valve disease, unspecified; I10 Essential (primary) hypertension; I86.4 Gastric varices; K70.30 Alcoholic cirrhosis of liver without ascites; Z66 Do not resuscitate; Z76.5 Malingerer [conscious simulation]; Z86.711 Personal history of pulmonary embolism; Z87.19 Personal history of other diseases of the digestive system; Z87.440 Personal history of urinary (tract) infections; Z53.21 Procedure and treatment not carried out due to patient leaving prior to being seen by health care provider
CPT/HCPCS: 31500; 36556; 36600; 51702; 74022; 84145; 96361; 99291; 99292; J3370; J3490; J7620; 70450; 71045; 80048; 80053; 80307; 81001; 82010; 82272; 82550; 82803; 82962; 83540; 83550; 83605; 83690; 83735; 83880; 84100; 84443; 84478; 84484; 85025; 87070; 87081; 87205; 87324; 87493; 93005; 94002; 94003; 94150; 94640; 96372; 96374; 96375; G0378; J0295; J1170; J1650; J1815; J2250; J2704; J3010; J3360; J3411; J3480; J7070; J0330; J0360; J1630; J1940; J2060; J2765; J3475; J7030; J7050

== ENCOUNTER 2018-10-08 13:42 | Emergency (ER) | payer MEDICAID ==
[~2018-10-08] VITALS: Ht 175.3 cm; Wt 65.4 kg
--- NOTE | 2018-10-08 16:55 | NUR ---
PT TO ROOM FROM LOBBY.
--- NOTE | 2018-10-08 17:54 | NUR ---
PT GIVEN DISCHARGE INSTRUCTIONS, REFERRAL LIST FOR DETOX, CLINIC LIST FOR MEDICAL FOLLOW UP. DISCUSSION OF RESOURCES AVAILABLE AND PT STATES HE WILL FOLLOW UP WITH [facility] AND CONTACT UNCLE THAT LIVES IN [place]. PT ALLOWED TO USE PHONE AT DISCHARGE DESK. PT AMBULATES OUT WITH STEADY GAIT.
[2018-10-08 17:56] VITALS: BP 153/81
== END 2018-10-08 17:58 | disposition home or self-care (01) ==
LOC: ED 17:15
DX: F10.220 Alcohol dependence with intoxication, uncomplicated (principal); F17.200 Nicotine dependence, unspecified, uncomplicated; I10 Essential (primary) hypertension; E11.65 Type 2 diabetes mellitus with hyperglycemia
CPT/HCPCS: 82962; 99281; 99282